=== PATIENT | female | born 1965 | race Hispanic/Latino ===

== ENCOUNTER 2020-11-07 10:57 | Emergency (ER) | payer OTHER ==
[2020-11-07] MEDS ORDERED: Boostrix 0.5 ML (Tdap) VIAL ONE (11:34)
== END 2020-11-07 12:17 | disposition home or self-care (01) ==
LOC: CSHERS 10:57
DX: S59.201A Unspecified physeal fracture of lower end of radius, right arm, initial encounter for closed fracture (principal); S01.01XA Laceration without foreign body of scalp, initial encounter; E11.40 Type 2 diabetes mellitus with diabetic neuropathy, unspecified; E11.43 Type 2 diabetes mellitus with diabetic autonomic (poly)neuropathy; K31.84 Gastroparesis; I25.10 Atherosclerotic heart disease of native coronary artery without angina pectoris; I25.2 Old myocardial infarction; I10 Essential (primary) hypertension; K21.9 Gastro-esophageal reflux disease without esophagitis; Z79.4 Long term (current) use of insulin; Z79.899 Other long term (current) drug therapy; W19.XXXA Unspecified fall, initial encounter
CPT/HCPCS: 12001; 29125; 70450; 90471; 90715

== ENCOUNTER 2022-09-15 13:43 | Outpatient (CLI) | payer BC | END 2022-09-15 13:44 | disposition home or self-care (01) | LOC: CSHMAMMO 13:43 | PROVIDERS: ATTEND Family Medicine | DX: Z12.31 Encounter for screening mammogram for malignant neoplasm of breast (principal); Z80.3 Family history of malignant neoplasm of breast | CPT/HCPCS: 77063; 77067 ==

== ENCOUNTER 2023-06-06 21:58 | Inpatient (IN) | payer BC ==
[2023-06-06 22:57] LABS: #Eosinphils 0.1 10x3/uL (0.0-0.5); #Monocytes 0.2 10x3/uL (0.0-1.1); #Neutrophils 3.9 10x3/uL (1.5-8.4); %Basophils 0.8 % (0.0-2.0); %Eosinophils 1.1 % (0.0-6.0); %Lymphocytes 17.8 % (18.0-47.0); %Monocytes 4.4 % (0.0-10.0); %Neutrophils 75.5 % (40.0-75.0); Hematocrit 34.8 % (34.9-44.5); Mean Corpuscular HGB CONC 34.5 g/dL (32.0-36.0); Mean Corpuscular Hemoglobin 29.1 pg (27.0-33.0); Mean Corpuscular Volume 84.5 fl (81.6-98.3); Platelet Count 273 10x3/uL (150-450); RBC Distribution Width 12.8 % (11.5-14.5); Red Blood Cell (RBC) Count 4.12 10x6/uL (3.90-5.03); White Blood Cell (WBC) Count 5.2 10x3/uL (3.5-10.5)
[2023-06-06 23:01] LABS: ALT (SGPT) 18 U/L (8-55); AST (SGOT) 19 U/L (5-34); Alkaline Phosphatase 62 U/L (40-110); Anion Gap 17 mmol/L (10-20); BUN (Urea Nitrogen) 9 mg/dL (9.8-20.1); Bilirubin, Total 0.9 mg/dL (0.2-1.2); Calc. Creatinine Clearance 0 mL/min (70-130); Calcium 8.8 mg/dL (7.8-10.44); Carbon Dioxide 22 mmol/L (22-29); Chloride 102 mmol/L (98-107); Estimated GFR 60; Globulin 3.1 g/dL (2.4-3.5); Glucose 213 mg/dL (70-105); Lipase 28 U/L (8-78); Magnesium 1.2 mg/dL (1.6-2.6); Potassium 4.3 mmol/L (3.5-5.1); Protein, Total 7.1 g/dL (6.0-8.3); Sodium 137 mmol/L (136-145)
[2023-06-06] MEDS ORDERED: Nitroglycerin 50 MG/250 ML BOT 250 ML ONE (23:32)
[2023-06-06] MEDS ORDERED: Aspirin Chewable 81 MG TAB ONE (23:45)
[2023-06-06] MEDS ORDERED: Ondansetron PF 4 MG/2 ML Vial ONE (23:45)
[2023-06-06] MEDS ORDERED: Glucagon 1 MG/ML KIT IM PRN (23:55)
[2023-06-06] MEDS ORDERED: Acetaminophen 325 MG TAB PO PRN (23:55)
[2023-06-06] MEDS ORDERED: Guaifenesin DM 100-10/5 ML UDCUP PO PRN (23:55)
[2023-06-06] MEDS ORDERED: Senokot S 8.6-50 MG TAB PO PRN (23:55)
[2023-06-06] MEDS ORDERED: HYDROcodone/Acetaminophen 5/325 mg Tablet PO PRN (23:55)
[2023-06-06] MEDS ORDERED: Ondansetron PF 4 MG/2 ML Vial IVP PRN (23:55)
[2023-06-06] MEDS ORDERED: Dextrose 50% Abboject 50 ML SYRINGE SLOW IVP PRN (23:55)
[2023-06-06] MEDS ORDERED: Dextrose 5% in Water 1,000 ML IV PRN (23:55)
[2023-06-06] MEDS ORDERED: Zolpidem Tartrate 5 MG TAB PO PRN (23:55)
[2023-06-06] MEDS ORDERED: Magnesium 2 GM/50 ML BAG (IN WATER) ONE (23:58)
[2023-06-06] MEDS ORDERED: Enoxaparin 60 MG (0.6 mL) SYRINGE ONE (23:58)
[2023-06-07] MEDS ORDERED: Nitroglycerin 50 MG/250 ML BOT 250 ML IVPB SCH (00:30)
[2023-06-07] MEDS: Morphine 2 MG/ML VIAL SLOW IVP SCH (01:42)
[2023-06-07] MEDS: Metoclopramide HCl 10 MG (2 mL) VIAL IVP SCH (01:42)
[2023-06-07] MEDS: Pantoprazole 40 MG VIAL IVP SCH ×2 (01:44→08:36)
[2023-06-07] MEDS: HumaLOG 300 UNITS/3 ML VIAL SC PRN (01:53)
[2023-06-07 03:45] LABS: Anion Gap 19 mmol/L (10-20); BUN (Urea Nitrogen) 8 mg/dL (9.8-20.1); Calc. Creatinine Clearance 144 mL/min (70-130); Calcium 8.5 mg/dL (7.8-10.44); Carbon Dioxide 18 mmol/L (22-29); Chloride 101 mmol/L (98-107); Estimated GFR 68; Glucose 220 mg/dL (70-105); Potassium 3.8 mmol/L (3.5-5.1); Sodium 134 mmol/L (136-145)
[2023-06-07 03:55] LABS: Troponin I 0.032 ng/mL (< 0.028)
[2023-06-07 05:52] LABS: Bilirubin Neg (Negative); Blood, Urine Negative (Negative); Clarity Clear (Clear); Glucose, Urine (Dipstick) 100 mg/dL (Negative); Ketone, Urine 15 mg/dL (Negative); Leukocyte Negative (Negative); Nitrite Negative (Negative); Protein, Urine (Dipstick) 15 mg/dl (Neg-Trace); Specific Gravity, Urine 1.005 (1.005-1.030); Urobilinogen Normal mg/dL (Less than 2)
[2023-06-07 05:53] VITALS: BMI 25.6
[2023-06-07 05:59] LABS: Amphetamine Not Detected (NotDetected); Barbiturates Screen Not Detected (NotDetected); Benzodiazepine Screen Not Detected (NotDetected); Cocaine Metabolite Screen Not Detected (NotDetected); Methadone Not Detected (NotDetected); Methamphetamine Not Detected (NotDetected); Opiate Screen Detected (NotDetected); Oxycodone Screen Not Detected (NotDetected); Phencyclidine (PCP) Not Detected (NotDetected); THC/Cannabinoid Screen Not Detected (NotDetected); Tricyclic Screen Not Detected (NotDetected)
[2023-06-07 06:03] LABS: Bacteria/HPF Rare-Few HPF (None Seen); RBC/HPF 0-3 HPF (0-3); Squamous Epithelial 0-3 HPF (0-3); WBC/HPF 0-3 HPF (0-3)
[2023-06-07] MEDS: Magnesium 2 GM/50 ML(in water) 2 GM in Premix 1 BAG IVPB SCH (06:22)
[2023-06-07 08:04] LABS: Troponin I 0.042 ng/mL (< 0.028)
[2023-06-07] MEDS: Aspirin 81 mg Enteric Coated Tablet PO SCH (08:36)
[2023-06-07] MEDS: Multivit, Therapeutic 1 TAB PO SCH (08:36)
[2023-06-07] MEDS: Losartan 50 MG TAB PO SCH (08:36)
[2023-06-07] MEDS: Carvedilol 25 MG TAB PO SCH (08:37)
[2023-06-07] MEDS: Vit A,C & E/Lutein/Minerals Tablet PO SCH (09:21)
[2023-06-07] MEDS ORDERED: Iopamidol 300 61% 100 ML VIAL FS ONE (12:30)
[2023-06-07] MEDS: Metoclopramide HCl 10 MG TAB PO SCH (12:41)
[2023-06-07] MEDS: Sodium Chloride 0.9% 1,000 ML IV SCH (12:43)
[2023-06-07 13:17] LABS: Hemoglobin A1c 6.4 % (4.0-6.0)
[2023-06-07] MEDS: Dicyclomine 10 MG CAP PO PRN (15:00)
[2023-06-07] MEDS: Calcium Carbonate 500 MG ChewTAB PO PRN (15:48)
[2023-06-07] MEDS ORDERED: Carvedilol 6.25 MG TAB PO SCH (17:00)
[2023-06-07 17:10] VITALS: BP 180/82; TEMP 98.2
[2023-06-07] MEDS: metFORMIN 500 MG TAB PO SCH (17:42)
[2023-06-07] MEDS: Sucralfate 1 GM TAB PO SCH (17:44)
[2023-06-07] MEDS ORDERED: Enoxaparin 40 MG (0.4 mL) SYRINGE SC SCH (21:00)
[2023-06-07] MEDS ORDERED: Simvastatin 10 MG TAB PO SCH (21:00)
== END 2023-06-07 18:52 | disposition home or self-care (01) | DRG 305 ==
LOC: CSHERS 21:58 → CSHIMCU 23:55 → CSHTELE 06-07 12:07
PROVIDERS: ADMIT Student in an Organized Health Care Education/Training Program; ATTEND Internal Medicine
DX: I16.1 Hypertensive emergency (principal); E83.42 Hypomagnesemia; K52.9 Noninfective gastroenteritis and colitis, unspecified; K27.9 Peptic ulcer, site unspecified, unspecified as acute or chronic, without hemorrhage or perforation; E78.5 Hyperlipidemia, unspecified; I25.10 Atherosclerotic heart disease of native coronary artery without angina pectoris; E11.9 Type 2 diabetes mellitus without complications; K21.9 Gastro-esophageal reflux disease without esophagitis; Z88.8 Allergy status to other drugs, medicaments and biological substances; Z88.1 Allergy status to other antibiotic agents; Z79.899 Other long term (current) drug therapy; Z79.84 Long term (current) use of oral hypoglycemic drugs; I10 Essential (primary) hypertension; F32.A Depression, unspecified; Z90.49 Acquired absence of other specified parts of digestive tract; Z90.710 Acquired absence of both cervix and uterus; Z82.49 Family history of ischemic heart disease and other diseases of the circulatory system; I25.2 Old myocardial infarction; Z79.82 Long term (current) use of aspirin; Z79.4 Long term (current) use of insulin
CPT/HCPCS: 36415; 36416; 71045; 74177; 80048; 80053; 80306; 81001; 83036; 83690; 83735; 83880; 84484; 85025; 86140; 93005; 93010; 93306; 96372; 96374; 96375; C9113; J1650; J1815; J2272; J2405; J2765; J3475; J7050; Q9967

== ENCOUNTER 2024-02-08 16:09 | Emergency (ER) | payer BC, OTHER ==
[2024-02-08 17:02] LABS: Bilirubin Neg (Negative); Blood, Urine 10 (Negative); Clarity Clear (Clear); Glucose, Urine (Dipstick) >=1000 mg/dL (Negative); Ketone, Urine Negative (Negative); Leukocyte Negative (Negative); Nitrite Negative (Negative); Protein, Urine (Dipstick) 15 mg/dl (Neg-Trace); Urobilinogen Normal mg/dL (Less than 2)
[2024-02-08 17:09] LABS: #Basophils 0.02 10x3/uL (0.0-0.2); #Eosinophils 0.05 10x3/uL (0.0-0.5); #Monocytes 0.36 10x3/uL (0.0-1.1); #Neutrophils 3.46 10x3/uL (1.5-8.4); %Basophils 0.4 % (0.0-2.0); %Lymphocytes 20.1 % (18.0-47.0); %Monocytes 7.4 % (0.0-10.0); %Neutrophils 70.9 % (40.0-75.0); Hematocrit 38.4 % (34.9-44.5); Hemoglobin 13.1 g/dL (12.0-15.5); Mean Corpuscular HGB CONC 34.1 g/dL (32.0-36.0); Mean Corpuscular Hemoglobin 27.5 pg (27.0-33.0); Mean Corpuscular Volume 80.5 fL (81.6-98.3); Mean Platelet Volume 9.2 fL (7.4-10.4); Platelet Count 310 10x3/uL (150-450); RBC Distribution Width 13.1 % (11.5-14.5); Red Blood Cell (RBC) Count 4.77 10x6/uL (3.90-5.03); White Blood Cell (WBC) Count 4.9 10x3/uL (3.5-10.5)
[2024-02-08 17:12] LABS: Amphetamine Not Detected (NotDetected); Barbiturates Screen Not Detected (NotDetected); Benzodiazepine Screen Not Detected (NotDetected); Cocaine Metabolite Screen Not Detected (NotDetected); Methadone Not Detected (NotDetected); Methamphetamine Not Detected (NotDetected); Opiate Screen Not Detected (NotDetected); Oxycodone Screen Not Detected (NotDetected); Phencyclidine (PCP) Not Detected (NotDetected); THC/Cannabinoid Screen Not Detected (NotDetected); Tricyclic Screen Not Detected (NotDetected)
[2024-02-08] MEDS ORDERED: Ondansetron PF 4 MG/2 ML Vial ONE (17:28)
[2024-02-08 17:33] LABS: ALT (SGPT) 24 U/L (8-55); AST (SGOT) 32 U/L (5-34); Albumin 4.1 g/dL (3.5-5.0); Alkaline Phosphatase 73 U/L (40-110); Anion Gap 16 mmol/L (10-20); BUN (Urea Nitrogen) 26 mg/dL (9.8-20.1); Bilirubin, Total 0.4 mg/dL (0.2-1.2); Calc. Creatinine Clearance 0 mL/min (70-130); Calcium 9.6 mg/dL (7.8-10.44); Carbon Dioxide 24 mmol/L (22-29); Chloride 93 mmol/L (98-107); Estimated GFR 22; Potassium 5.9 mmol/L (3.5-5.1); Protein, Total 7.1 g/dL (6.0-8.3); Sodium 127 mmol/L (136-145)
[2024-02-08 17:34] LABS: Acetaminophen Less than 10 mcg/mL (Less than 10); Alcohol Less than 10.0 mg/dL (Less than 10); Lipase 137 U/L (8-78); Salicylate Less than 8.0 mg/dL (Less than 8.0)
[2024-02-08 17:46] LABS: Troponin I 0.224 ng/mL (< 0.028)
[2024-02-08 17:47] LABS: Glucose 423 mg/dL (70-105)
[2024-02-08 18:01] LABS: D-Dimer Test 0.36 mcg/mL (0.19-0.50); INR-International Normal Ratio 1.1; PTT 23.1 sec (22.0-33.0); Prothrombin Time 11.4 sec (9.5-12.1)
[2024-02-08] MEDS ORDERED: Aspirin 325 MG TAB ONE (18:04)
[2024-02-08] MEDS ORDERED: hydrALAZINE 20 MG/ML VIAL ONE (18:11)
[2024-02-08 18:20] LABS: Bacteria/HPF 2+ HPF (None Seen); CAUTI Indications for Culture Pelvic or flank pain; RBC/HPF 0-3 HPF (0-3); Squamous Epithelial 0-3 HPF (0-3); WBC/HPF 0-3 HPF (0-3)
[2024-02-08 18:22] LABS: Urine Culture Reflex No No
[2024-02-08 18:27] LABS: Actual Bicarbonate (HCO3v) 22.8 mEq/L (22-28); Analyzer IN Cardio CS ER; Base Excess -1.2 mEq/L (-2 - +2); Calcium, Ionized (venous) 1.08 mmol/L (1.16-1.32); Chloride (VBG) 97 mmol/L (98-106); Hematocrit-VBG 37 % (36.0-47.0); Hemoglobin (Hb) 12.5 g/dL (11.7-16.0); Potassium (VBG) 4.97 mmol/L (3.70-5.30); Puncture Site Other Site; Sodium 133 mmol/L (133-146); pH (venous) 7.424 (7.32-7.43)
[2024-02-08] MEDS ORDERED: Insulin Regular, Human 100 UNIT/ML 10 ML VIAL ONE (18:32)
[2024-02-08 18:38] LABS: Phosphorus 2.6 mg/dL (2.3-4.7)
[2024-02-08 20:30] LABS: Anion Gap 16 mmol/L (10-20); BUN (Urea Nitrogen) 22 mg/dL (9.8-20.1); Calc. Creatinine Clearance 0 mL/min (70-130); Calcium 8.9 mg/dL (7.8-10.44); Carbon Dioxide 21 mmol/L (22-29); Chloride 102 mmol/L (98-107); Estimated GFR 30; Glucose 164 mg/dL (70-105); Potassium 4.6 mmol/L (3.5-5.1); Sodium 134 mmol/L (136-145)
[2024-02-08 20:57] LABS: Critical Call Chem Troponin I ERS.WJM AT 2056; Troponin I 0.208 ng/mL (< 0.028)
== END 2024-02-08 20:43 | disposition short-term general hospital (02) ==
LOC: CSHERS 16:09
DX: N17.9 Acute kidney failure, unspecified (principal); R45.851 Suicidal ideations; I16.1 Hypertensive emergency; E87.5 Hyperkalemia; R79.89 Other specified abnormal findings of blood chemistry; E11.65 Type 2 diabetes mellitus with hyperglycemia; E11.40 Type 2 diabetes mellitus with diabetic neuropathy, unspecified
CPT/HCPCS: 36415; 36416; 71045; 80053; 80306; 80307; 81001; 82010; 82805; 83605; 83690; 83735; 83880; 84100; 84443; 84484; 85025; 85379; 85610; 85730; 87428; 93005; 96361; 96374; 96375; J0360; J1815; J2405